=== PATIENT | male | born 2000 | race Caucasian/White ===

== ENCOUNTER 2024-01-06 18:22 | Emergency (ER) | payer SELFPAY ==
[2024-01-06 18:33] VITALS: BP 144/74; PULSE 84; RESP 18; TEMP 98.8; BMI 33.5
== END 2024-01-06 19:10 | disposition left against medical advice (07) ==
LOC: JER 18:22
DX: R00.2 Palpitations (principal)
CPT/HCPCS: 93005; 93010; 99283-25